=== PATIENT | male | born 1945 | race Hispanic/Latino ===

== ENCOUNTER 2021-10-24 11:00 | Emergency (ER) | payer OTHER, MEDICARE ==
[~2021-10-24] VITALS: Ht 172.7 cm; Wt 86.2 kg
[2021-10-24 12:16] LABS: BASOPHILS % (AUTO) 0.5 % (0.0-5.0); EOSINOPHILS % (AUTO) 2.4 % (0.0-8.0); LYMPHOCYTES % (AUTO) 9.8 % (21.0-51.0); MEAN CORPUSCULAR HEMOGLOBIN 32.7 pg (27.0-33.0); MEAN CORPUSCULAR HGB CONC 33.7 g/dL (32.0-36.0); MEAN CORPUSCULAR VOLUME 96.9 fL (79-99); MONOCYTES % (AUTO) 5.6 % (3.0-13.0); NEUTROPHILS % (AUTO) 81.2 % (40.0-77.0); PLATELET COUNT (AUTO) 289 K/uL (130-400); RED BLOOD CELL COUNT(AUTO) 3.92 MIL/uL (4.50-6.20); RED CELL DISTRIBUTION WIDTH 16.5 % (11.0-15.5); WHITE BLOOD COUNT (AUTO) 12.7 K/uL (4.8-10.8)
[2021-10-24 12:25] LABS: CREATININE 0.8 mg/dL (0.5-1.5)
[2021-10-24 12:32] LABS: ALBUMIN 2.8 g/dL (3.5-5.0); BILIRUBIN,TOTAL 0.4 mg/dL (0.2-1.0); TOTAL PROTEIN, SERUM 6.2 g/dL (6.0-8.3)
[2021-10-24 13:39] LABS: APPEARANCE,URINE CLEAR (CLEAR); BILIRUBIN,URINE NEGATIVE (NEGATIVE); COLOR,URINE YELLOW (YELLOW); GLUCOSE, URINE (UA) NEGATIVE (NEGATIVE); KETONES,URINE NEGATIVE (NEGATIVE); LEUKOCYTE ESTERASE ,URINE NEGATIVE (NEGATIVE); NITRATE,URINE NEGATIVE (NEGATIVE); OCCULT BLOOD,URINE NEGATIVE (NEGATIVE); PROTEIN,URINE NEGATIVE (NEGATIVE); UROBILINOGEN,URINE 0.2 mg/dL (0.2-1.0)
[2021-10-24 14:10] VITALS: BP 124/82
== END 2021-10-24 14:48 ==
LOC: EDH 11:00
DX: G30.9 Alzheimer's disease, unspecified (principal); F02.81 Dementia in other diseases classified elsewhere, unspecified severity, with behavioral disturbance; I48.91 Unspecified atrial fibrillation
CPT/HCPCS: 36415; 70450; 71045; 80053; 81003; 84484; 85025; 93005

== ENCOUNTER 2022-01-12 16:07 | Emergency (ER) | payer OTHER, MEDICARE ==
[~2022-01-12] VITALS: Ht 165.1 cm; Wt 72.6 kg
[2022-01-12 16:39] LABS: APPEARANCE,URINE SL CLOUDY (CLEAR); BILIRUBIN,URINE NEGATIVE (NEGATIVE); COLOR,URINE YELLOW (YELLOW); GLUCOSE, URINE (UA) NEGATIVE (NEGATIVE); KETONES,URINE 5 mg/dL (NEGATIVE); LEUKOCYTE ESTERASE ,URINE LARGE (NEGATIVE); NITRATE,URINE NEGATIVE (NEGATIVE); OCCULT BLOOD,URINE MODERATE (NEGATIVE); PROTEIN,URINE NEGATIVE (NEGATIVE)
[2022-01-12 16:47] LABS: AMPHET/METH SCREEN,URINE NEGATIVE (NEGATIVE); BARBITURATE SCREEN, URINE NEGATIVE (NEGATIVE); BENZODIAZEPINES SCREEN,URINE NEGATIVE (NEGATIVE); CANNABINOID SCREEN,URINE NEGATIVE (NEGATIVE); COCAINE SCREEN,URINE NEGATIVE (NEGATIVE); OPIATE SCREEN,URINE NEGATIVE (NEGATIVE); PHENCYCLIDINE SCREEN,URINE NEGATIVE (NEGATIVE)
[2022-01-12 16:55] LABS: BACTERIA,URINE Few /HPF (None Seen); CALCIUM OXALATE CRYSTALS,UR Few /LPF (None Seen); MUCUS,URINE None Seen LPF (None Seen); SQUAMOUS EPITHELIAL CELL,UR None Seen /HPF (0-2); WBC,URINE 26-50 /HPF (0-1)
[2022-01-12 16:57] LABS: BASOPHILS % (AUTO) 0.4 % (0.0-5.0); HEMATOCRIT 41.8 % (42-54); LYMPHOCYTES % (AUTO) 16.7 % (21.0-51.0); MEAN CORPUSCULAR HGB CONC 34.2 g/dL (32.0-36.0); MEAN CORPUSCULAR VOLUME 93.5 fL (79-99); MONOCYTES % (AUTO) 7.5 % (3.0-13.0); PLATELET COUNT (AUTO) 255 K/uL (130-400); RED BLOOD CELL COUNT(AUTO) 4.47 MIL/uL (4.50-6.20); RED CELL DISTRIBUTION WIDTH 15.1 % (11.0-15.5)
[2022-01-12] MEDS ORDERED: LEVOFLOXACIN 500 MG/D5W 100 ML 100 ML IV STA (17:00)
[2022-01-12 17:13] LABS: CARBON DIOXIDE 31 mmol/L (21-32); CHLORIDE 104 mmol/L (101-111); CREATININE 1.2 mg/dL (0.5-1.5); GLOMERULAR FILTR. RATE CALC 63 mL/min (>60); GLUCOSE,RANDOM 103 mg/dL (70-105); POTASSIUM 4.8 mmol/L (3.5-5.1); SODIUM SERUM 142 mmol/L (136-145); UREA NITROGEN, BLOOD 24 mg/dL (7-18)
[2022-01-12 17:17] LABS: ALANINE AMINOTRANSFERASE 29 U/L (12-78); ASPARTATE AMINOTRANSFERASE 23 U/L (10-37); BILIRUBIN,TOTAL 0.2 mg/dL (0.2-1.0); CREATINE KINASE, TOTAL 97 U/L (21-232); TOTAL PROTEIN, SERUM 6.4 g/dL (6.0-8.3)
[2022-01-12 17:25] LABS: AMMONIA < 9 umol/L (11-32)
[2022-01-12] MEDS ORDERED: LEVO750T46 PO (18:56)
[2022-01-12 21:33] VITALS: BP 139/75
== END 2022-01-12 21:39 | disposition home or self-care (01) ==
LOC: EDH 16:07
DX: N39.0 Urinary tract infection, site not specified (principal); G30.9 Alzheimer's disease, unspecified; F02.81 Dementia in other diseases classified elsewhere, unspecified severity, with behavioral disturbance; I48.91 Unspecified atrial fibrillation; E78.00 Pure hypercholesterolemia, unspecified
CPT/HCPCS: 36415; 80053; 80305; 81001; 82140; 82550; 85025; 87077; 87088; 87186; 96365; 96366; 99285; J1956